=== PATIENT | female | born 1970 | race Caucasian/White ===

== ENCOUNTER 2017-01-05 17:42 | Emergency (ER) | payer SELFPAY ==
[~2017-01-05] VITALS: Ht 180.3 cm; Wt 100.0 kg
[~2017-01-05 17:42] MED LIST: AMOXICILLIN500 MG PO; FLEXERIL10 MG PO; HYDROCO/APAP1 TA9 PO; LORTAB 5/3255 MG PO; MEDDOSEPAK PO; MOTRIN800 MG PO; NAPROSYN500 MG PO; PENICILLN VK500 MG PO; PROAIR HFA IN; ROBITUSSIN200 MG/10 PO; ULTRAM50 M1 PO; ULTRAM50 MG PO; ZITHROMAX250 MG PO; [UNRECOGNIZED DRUG - OTHER] OR
[2017-01-05] MEDS ORDERED: AMOXICILLIN500 MG PO (18:34)
[2017-01-05] MEDS ORDERED: LORTAB 10-325 M1 TAB PO (18:34)
[2017-01-05 18:40] VITALS: BP 154/95
== END 2017-01-05 18:45 | disposition home or self-care (01) | DRG 159 ==
LOC: ED 17:42
DX: K04.7 Periapical abscess without sinus (principal); I48.91 Unspecified atrial fibrillation; J45.909 Unspecified asthma, uncomplicated; F17.210 Nicotine dependence, cigarettes, uncomplicated